=== PATIENT | female | born 1980 | race Caucasian/White ===

== ENCOUNTER → 2019-05-05 | Outpatient (CLI) | payer BC ==
[~2019-05-05] MED LIST: MULVITMINE; Percocet 5-3251 EACH PO; SERT100 PO
== END | disposition home or self-care (01) ==
LOC: LAB 10:50 → LAB SHORT 10:50
DX: N93.9 Abnormal uterine and vaginal bleeding, unspecified (principal)
CPT/HCPCS: 87086

== ENCOUNTER → 2019-08-02 | Outpatient (CLI) | payer BC | END | disposition home or self-care (01) | LOC: LAB SHORT 11:48 → LAB 11:48 | DX: J02.9 Acute pharyngitis, unspecified (principal) | CPT/HCPCS: 87081 ==

== ENCOUNTER 2020-12-15 12:24 | Emergency (ER) | payer BC ==
[~2020-12-15] VITALS: Ht 165.1 cm; Wt 86.2 kg
[2020-12-15] MEDS ORDERED: ONDA4ODT MM (13:24)
== END 2020-12-15 13:43 | disposition home or self-care (01) ==
LOC: ER 12:24
DX: U07.1 COVID-19 (principal); Z88.8 Allergy status to other drugs, medicaments and biological substances
CPT/HCPCS: 99284